=== PATIENT | male | born 1990 | race American Indian/Alaskan Native ===

== ENCOUNTER 2016-09-03 19:18 | Emergency (ER) | payer OTHER ==
[2016-09-03] MEDS ORDERED: NORCO 5/325 PO ONE (20:19)
[2016-09-03] MEDS ORDERED: TORADOL IV ONE (20:19)
[2016-09-03] MEDS ORDERED: NACL 0.9% 1000 ML 1,000 ML IV ONE (20:19)
[2016-09-03 21:05] LABS: Basophils % (Auto) 0.1 % (0.0-1.8); Eosinophils % (Auto) 0.1 % (0.0-4.3); Hematocrit 40.7 % (35.5-45.6); Hemoglobin 13.1 gm/dl (11.8-15.2); Mean Corpuscular HGB Conc 32 % (32-34); Mean Corpuscular Hemoglobin 27 pg (28-32); Mean Corpuscular Volume 84 fl (84-94); Platelet Count 252 K/mm3 (140-440); Red Blood Count 4.86 M/mm3 (3.65-5.03); Red Cell Distribution Width 15.6 % (13.2-15.2); White Blood Count 16.8 K/mm3 (4.5-11.0)
[2016-09-03 21:14] LABS: INR 1.19 (0.87-1.13); Partial Thromboplastin Time 28.1 Sec. (24.2-36.6)
[2016-09-03 21:15] LABS: Alanine Aminotransferase 66 units/L (7-56); Albumin 4.3 g/dL (3.9-5); Albumin/Globulin Ratio 1.4 %; Alkaline Phosphatase 57 units/L (35-129); Anion Gap 19 mmol/L; BUN/Creatinine Ratio 5.33; Bilirubin,Total 0.4 mg/dL (0.1-1.2); Blood Urea Nitrogen 8 mg/dL (9-20); Calcium 9.3 mg/dL (8.4-10.2); Carbon Dioxide 25 mmol/L (22-30); Chloride 97.9 mmol/L (98-107); Glucose 139 mg/dL (75-100); Potassium 3.3 mmol/L (3.6-5.0); Sodium 139 mmol/L (137-145); Total Protein 7.3 g/dL (6.3-8.2)
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
[2016-09-03] MEDS ORDERED: K-DUR PO ONE (22:02)
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
[2016-09-03] MEDS ORDERED: DILAUDID IV ONE (22:16)
[2016-09-03 22:27] LABS: Urine Drugs of Abuse Note Disclamer
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
[2016-09-04] MEDS ORDERED: DILAUDID IV ONE ×2 (00:57→01:36)
[2016-09-04 03:59] VITALS: BP 130/76
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
== END 2016-09-04 04:15 | disposition home or self-care (01) ==
LOC: ED 19:18
DX: S32.018A Other fracture of first lumbar vertebra, initial encounter for closed fracture (principal); S46.911A Strain of unspecified muscle, fascia and tendon at shoulder and upper arm level, right arm, initial encounter; S46.912A Strain of unspecified muscle, fascia and tendon at shoulder and upper arm level, left arm, initial encounter; F19.10 Other psychoactive substance abuse, uncomplicated; R56.9 Unspecified convulsions; E87.6 Hypokalemia; F17.200 Nicotine dependence, unspecified, uncomplicated; V49.88XA Car occupant (driver) (passenger) injured in other specified transport accidents, initial encounter; Y93.89 Activity, other specified; Y99.9 Unspecified external cause status; Y92.410 Unspecified street and highway as the place of occurrence of the external cause
CPT/HCPCS: 36415; 70450; 72100; 72128; 72131; 73030; 80053; 80307; 83735; 85025; 85610; 85730; 93005; 93010; 96361; 96374; 96375; 96376; 99285; G0480; J1170; J1885; J7030; 80320

== ENCOUNTER 2018-03-02 07:10 | Emergency (ER) | payer OTHER ==
[2018-03-02] MEDS ORDERED: ZOFRAN ODT PO PRN (10:32)
[2018-03-02] MEDS ORDERED: PEPCID PO ONE (10:32)
--- NOTE | 2018-03-02 10:34 | Emergency Department Report ---
ED General Adult HPI - General Chief complaint: Alcohol Stated complaint: ALCOHOL WITHDRAWAL Time Seen by Provider: 03/02/18 10:25 Source: patient, RN notes reviewed, old records reviewed Mode of arrival: Ambulatory Limitations: No Limitations - History of Present Illness Initial comments: This is a 27-year-old gentleman who is not known to this provider previously, endorses a past medical history of alcohol abuse and pancreatitis. He presents to the ER with resolved upper extremity fidgeting. He indicates he thinks he is going to alcohol withdrawal. His last drink was 2 days ago. He denies homicidality, suicidality, hallucinations, access to guns, firearms. He endorses burning epigastric discomfort. It is now resolved. The patient's denies vomiting, testicular pain, lower abdominal pain, irritative, obstructive urinary symptoms. He endorses no radiation, or exacerbating or relieving factors that he is aware of. -: Gradual Location: abdomen Consistency: now resolved Improves with: none Worsens with: none Associated Symptoms: denies: confusion, chest pain, cough, diaphoresis, fever/ chills, headaches, loss of appetite, malaise, rash, seizure, shortness of breath , syncope, weakness - Related Data Previous Rx's Medication Instructions Recorded Last Taken Type HYDROcodone/APAP 5-325 [[place] 1 each PO Q6HR PRN #20 tablet 09/04/16 Unknown Rx 5/325] Ibuprofen [Motrin] 800 mg PO Q8HR PRN #30 tablet 09/04/16 Unknown Rx Famotidine [Pepcid] 20 mg PO BID #10 tablet 03/02/18 Unknown Rx Ondansetron [Zofran Odt] 4 mg PO Q8HR PRN #20 tab.rapdis 03/02/18 Unknown Rx chlordiazePOXIDE [Librium] 25 mg PO Q6H PRN #20 capsule 03/02/18 Unknown Rx Allergies Allergy/AdvReac Type Severity Reaction Status Date / Time No Known Allergies Allergy Verified 03/02/18 07:18 ED Review of Systems ROS: Stated complaint: ALCOHOL WITHDRAWAL Other details as noted in HPI Comment: All other systems reviewed and negative Gastrointestinal: abdominal pain Psychiatric: denies: homicidal thoughts, suicidal thoughts ED Past Medical Hx - Past Medical History Hx Hypertension: Yes Additional medical history: PANCREATITIS - Surgical History Past Surgical History?: No - Social History Smoking Status: Current Every Day Smoker Substance Use Type: Alcohol - Medications Home Medications: Home Medications Medication Instructions Recorded Confirmed Last Taken Type HYDROcodone/APAP 5-325 [[place] 1 each PO Q6HR PRN #20 tablet 09/04/16 Unknown Rx 5/325] Ibuprofen [Motrin] 800 mg PO Q8HR PRN #30 tablet 09/04/16 Unknown Rx Famotidine [Pepcid] 20 mg PO BID #10 tablet 03/02/18 Unknown Rx Ondansetron [Zofran Odt] 4 mg PO Q8HR PRN #20 tab.rapdis 03/02/18 Unknown Rx chlordiazePOXIDE [Librium] 25 mg PO Q6H PRN #20 capsule 03/02/18 Unknown Rx ED Physical Exam - General Limitations: No Limitations General appearance: alert, in no apparent distress - Head Head exam: Present: atraumatic, normocephalic - Eye Eye exam: Present: normal appearance, EOMI. Absent: nystagmus - ENT ENT exam: Present: normal exam, normal orophraynx, mucous membranes moist, normal external ear exam - Neck Neck exam: Present: normal inspection, full ROM. Absent: tenderness, meningismus - Respiratory Respiratory exam: Present: normal lung sounds bilaterally. Absent: respiratory distress - Cardiovascular Cardiovascular Exam: Present: regular rate, normal rhythm, normal heart sounds. Absent: bradycardia, tachycardia, irregular rhythm, systolic murmur, diastolic murmur, rubs, gallop - GI/Abdominal GI/Abdominal exam: Present: soft, normal bowel sounds. Absent: distended, tenderness, guarding, rebound, rigid, pulsatile mass - Rectal Rectal exam: Present: deferred - Extremities Exam Extremities exam: Present: normal inspection, full ROM, normal capillary refill , other (2+ pulses noted in the bilateral upper, lower extremities. Compartments soft. No long bony tenderness. The pelvis is stable.). Absent: tenderness, pedal edema, joint swelling, calf tenderness - Back Exam Back exam: Present: normal inspection, full ROM. Absent: tenderness, CVA tenderness (R), paraspinal tenderness, vertebral tenderness - Neurological Exam Neurological exam: Present: alert (there are no tongue fasciculations. The patient's compartments are soft.), oriented X3, CN II-XII intact, normal gait, other (Extraocular movements intact. Tongue midline. No facial droop. Facial sensation intact to light touch in the V1, V2, V3 distribution bilaterally. 5 and 5 strength in 4 extremities.. Sensation is intact to light touch in 4 extremities.). Absent: motor sensory deficit - Psychiatric Psychiatric exam: Absent: anxious, homicidal ideation, suicidal ideation - Skin Skin exam: Present: warm, dry, intact, normal color. Absent: rash ED Course Vital Signs 03/02/18 03/02/18 03/02/18 07:18 10:27 10:30 Temperature 99.1 F Pulse Rate 113 H Respiratory 18 Rate Blood Pressure 136/95 126/88 135/94 Blood Pressure [Right] O2 Sat by Pulse 100 Oximetry 03/02/18 03/02/18 03/02/18 10:37 10:45 13:19 Temperature 99.0 F 97.8 F Pulse Rate 90 87 Respiratory 20 20 Rate Blood Pressure 118/79 Blood Pressure 135/92 136/90 [Right] O2 Sat by Pulse 98 97 99 Oximetry - Reevaluation(s) Reevaluation #1: 03/02/18 10:58 Differential diagnosis, including but not limited to: Alcohol dependence, GERD, gastritis, pancreatitis, medical screening Assessment and plan: 27-year-old male who endorses abdominal pain and alcohol withdrawal. His tachycardia has resolved, and his abdomen is soft and benign, with no tenderness whatsoever. He is not tachycardic at this time, he is not hypertensive and he is not diaphoretic. His physical examination and current presentation are not consistent with acute alcohol withdrawal. He is clinically sober, does not meet 1013 criteria at this time. He is suitable for outpatient management for alcohol dependence. Based on his current exam, normal vital signs, it is my pain that he does not require advanced imaging for his abdomen and pelvis at this time. As a courtesy, I will have the patient evaluated by the chemical tank worker who will provide him with outpatient resources for alcohol dependence. Reevaluation #2: 03/02/18 13:58 Patient has been resting comfortably in the ER for rales without clinical decompensation. He has a nonspecific transaminitis, and a nonspecific elevated bilirubin level. There is no abdominal tenderness or vomiting. This is most likely an alcohol-induced medical hepatitis. He is counseled to abstain from alcohol consumption, avoid acetaminophen, and he can follow up with a primary care doctor or application support engineer for his transaminitis and elevated bilirubin level the patient is ordered and seen by the case management team, and they have given him outpatient resources for alcohol detox. Patient will also be discharged with as needed Librium, Zofran, and Pepcid. ED Medical Decision Making - Lab Data Result diagrams: 03/02/18 10:46 03/02/18 10:46 Vital Signs 03/02/18 03/02/18 03/02/18 07:18 10:27 10:30 Temperature 99.1 F Pulse Rate 113 H Respiratory 18 Rate Blood Pressure 136/95 126/88 135/94 Blood Pressure [Right] O2 Sat by Pulse 100 Oximetry 03/02/18 03/02/18 10:37 10:45 Temperature 99.0 F Pulse Rate 90 Respiratory 20 Rate Blood Pressure 118/79 Blood Pressure 135/92 [Right] O2 Sat by Pulse 98 97 Oximetry - EKG Data -: EKG Interpreted by Me EKG shows normal: sinus rhythm, axis, intervals, QRS complexes, ST-T waves Critical care attestation.: If time is entered above; I have spent that time in minutes in the direct care of this critically ill patient, excluding procedure time. ED Disposition Clinical Impression: Alcohol dependence Disposition: DC-01 TO HOME OR SELFCARE Is pt being admited?: No Does the pt Need Aspirin: No Condition: Stable Instructions: Polysubstance Abuse (ED) Additional Instructions: Take the medications as needed/directed. Follow up with the outpatient resources that were provided for alcohol dependence. Long-term consumption of alcohol can cause disability or loss of quality of life and serious complications, such as liver failure, heart failure. Therefore, please make every effort to moderate or diminish alcohol consumption. Follow up with the primary care doctor within the next month. Return to the ER right away with new pain, worsened pain, migration of pain, projectile vomiting, change in mental status, confusion, inability to tolerate liquid feeds. Take the Pepcid as needed for abdominal pain. Take the Zofran as stated for nausea. Take Librium as needed for sensation of alcohol withdrawal. Laboratory studies today demonstrated evidence of liver inflammation, most likely alcohol-induced hepatitis. Avoid consumption of alcohol and acetaminophen/Tylenol. Follow-up with the primary care doctor or application support engineer within the next month for abnormal laboratory finding/ abnormal liver studies. Prescriptions: chlordiazePOXIDE [Librium] 25 mg PO Q6H PRN #20 capsule PRN Reason: Alcohol Withdrawal Famotidine [Pepcid] 20 mg PO BID #10 tablet Ondansetron [Zofran Odt] 4 mg PO Q8HR PRN #20 tab.rapdis PRN Reason: Nausea Referrals: [facility] [Provider Group[facility] [[facility] - 3-5 Days PRIMARY [facility]ARE, [Primary Care Provider] - 3-5 Days [facility] [Provider Group] - 3-5 Days
[2018-03-02 11:20] LABS: Hemoglobin 16.1 gm/dl (11.8-15.2); Mean Corpuscular HGB Conc 33 % (32-34); Mean Corpuscular Hemoglobin 28 pg (28-32); Mean Corpuscular Volume 85 fl (84-94); Platelet Count 210 K/mm3 (140-440); Red Blood Count 5.77 M/mm3 (3.65-5.03); Red Cell Distribution Width 13.4 % (13.2-15.2)
[2018-03-02 11:24] LABS: Alanine Aminotransferase 144 units/L (7-56); Albumin 4.1 g/dL (3.9-5); BUN/Creatinine Ratio 14; Blood Urea Nitrogen 14 mg/dL (9-20); Calcium 8.9 mg/dL (8.4-10.2); Hemolysis Index 12
[2018-03-02 11:31] LABS: INR 1.12 (0.87-1.13); Partial Thromboplastin Time 27.1 Sec. (24.2-36.6)
[2018-03-02 12:36] LABS: Lipase 32 units/L (13-60)
[2018-03-02 13:23] VITALS: BP 136/90
--- NOTE | 2018-03-02 13:32 | Ultrasound Report ---
FINAL REPORT EXAM: US ABDOMEN LIMITED HISTORY: ABD PAIN TECHNIQUE: Grayscale and color doppler ultrasound imaging of the right upper quadrant was performed. PRIORS: None. FINDINGS: Liver: The liver is normal in echogenicity. No focal hepatic lesions or intrahepatic biliary ductal dilation. Gallbladder/Biliary system: No cholelithiasis, gallbladder wall thickening or pericholecystic fluid. The common bile duct measures 5.2 millimeters. Right kidney: The right kidney is normal in echogenicity without hydronephrosis, cyst, mass or calcification. The right kidney measures 10.5 x 5.0 x 6.5 centimeters. No renal cortical thinning. Pancreas: The visualized portions of the pancreas demonstrate no focal lesion. Aorta/IVC: The visualized portions of the abdominal aorta and IVC are normal in caliber. Free fluid: None. IMPRESSION: Normal right upper quadrant abdominal ultrasound.
== END 2018-03-02 14:15 | disposition home or self-care (01) ==
LOC: ED 07:10
DX: F10.20 Alcohol dependence, uncomplicated (principal); I10 Essential (primary) hypertension; F17.200 Nicotine dependence, unspecified, uncomplicated
CPT/HCPCS: 36415; 76705; 80053; 82550; 83690; 83735; 85027; 85610; 85730; 93005; 93010; 99284; G0480; 80320; Q0162